=== PATIENT | female | born 1945 ===

== ENCOUNTER 2018-08-24 06:35 | Day surgery (SDC) | payer OTHER ==
[~2018-08-24 06:35] MED LIST: ATORVASTATIN CA10 MG PO; CARVEDILOL12.5 MG PO; FORTAMET1000 MG PO; GLIPIZIDE XL2.5 MG PO; IRBESARTAN-HCT1 EACH PO; LANTUS SOL100 UNIT/1; ZEGERID 40 MG1 EACH PO
[2018-08-24] MEDS ORDERED: PERCOCET 5-3251 EACH PO (08:37)
[2018-08-24] MEDS ORDERED: RECTICARE30 GM TOP (08:37)
== END 2018-08-24 14:05 | disposition home or self-care (01) ==
LOC: CIR.AMB 06:35
DX: K62.0 Anal polyp (principal)